=== PATIENT | male | born 1975 | race Two or more races ===

== ENCOUNTER 2018-12-28 15:51 | Emergency (ER) | payer SELFPAY ==
--- NOTE | 2018-12-28 17:39 | ED Physician Chart ---
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 History of Present Illness:: today Allergies:: Allergies Allergy/AdvReac Type Severity Reaction Status Date / Time No Known Allergies Allergy Verified 12/28/18 16:57 Vitals:: Vital Signs - 8 hr 12/28/18 16:03 Temp 98.2 F HR 78 RR 18 BP 158/81 O2 Sat % 97 Historian:: Patient, Family Member Review:: Nurse's Note Reviewed ED Review of Systems - Review of Systems General/Constitutional: No fever Skin: Skin lesions (2cm horizontal NO INVASION JOINT space L dorsum 2nd digit) ED Past Medical History - Past Medical History Past Medical History: No significant medical hx Family Medical History - Family Member Father History Unknown: Yes ED Physical Exam - Physical Examination General/Constitutional: Well-developed, well-nourished, Alert, GCS 15, Non- toxic appearing, Ambulatory Head: Atraumatic Eyes: Lids, conjuctiva normal Skin: Nl inspection (senation intact) ENMT: External ears, nose nl Neck: Full ROM w/o pain Respiratory: Nl effort/Exclusion, Clear to Auscultation Cardio Vascular: RRR, No murmur, gallop, rubs GI: No tenderness/rebounding/guarding : No CVA tenderness Extremities: Full ROM Neuro/Psych: Alert/oriented ED Labs/Radiology/EKG Results - Lab Results Results: 2 inch full thichness cut to facia no joint space involvment grossly dorsum 2nd at mcp joint l hand ED Septic Shock - . Is Septic Shock (SBP<90, OR Lactate>4 mmol\L) present?: No - <6hrs of presentation: Vital Signs: Vital Signs - 8 hr 12/28/18 16:03 Temp 98.2 F HR 78 RR 18 BP 158/81 O2 Sat % 97 ED Reassessment (Disposition) - Reassessment Reassessment Condition:: Improved (rocephin im given maximal irrigation with soap betadyne external infection instruction) - Aftercare/Follow up Instructions Aftercare/Follow-Up Instructions:: Counseled pt regarding lab results/diagnosis & need follow up (must see md 2 days infecton instructions aumentin 875 with food for 10 stop diar) - Patient Disposition Discharge/Transfer:: Home Condition at Disposition:: Stable, Improved
[2018-12-28] MEDS ORDERED: Bacitracin Zinc/Polymyxin B Oint 15 gm Tube TP ONE (17:52)
[2018-12-28] MEDS ORDERED: Triple Antibiotic 0.94 gm Pkt TP ONE (18:03)
== END 2018-12-28 18:15 | disposition home or self-care (01) ==
LOC: ER 15:51
DX: S61.211A Laceration without foreign body of left index finger without damage to nail, initial encounter (principal); W29.8XXA Contact with other powered hand tools and household machinery, initial encounter; Y93.89 Activity, other specified; Y92.89 Other specified places as the place of occurrence of the external cause; Y99.8 Other external cause status
CPT/HCPCS: 99283; 96372; J0696; 12001; A4217; J2001; Z7502